=== PATIENT | female | born 1995 | race Caucasian/White ===

== ENCOUNTER 2016-11-16 22:17 | Emergency (ER) | payer OTHER ==
[2016-11-16 22:34] VITALS: TEMP 98; BMI 21.9
--- NOTE | 2016-11-16 22:52 | PDOC ---
History of Present Illness - General Chief Complaint: Laceration Stated Complaint: LFT FINGER LACERATION Time Seen by Provider: 11/16/16 22:37 - History of Present Illness Initial Comments: 11/16/16 22:53 21 year old female with laceration to left index finger proximal to PIP. currently minimal bleeding. able to move fingers. sensation intact. last tetanus 2013 Past History - Past Medical History Allergies/Adverse Reactions: Allergies Allergy/AdvReac Type Severity Reaction Status Date / Time No Known Allergies Allergy Verified 11/16/16 22:31 Home Medications: Ambulatory Orders NK [No Known Home Medication] 11/16/16 - Psycho/Social/Smoking Cessation Hx Anxiety: No Suicidal Ideation: No Smoking History: Never smoked Hx Alcohol Use: Yes Review of Systems - Review of Systems Able to Perform ROS?: Yes Is the patient limited [place] proficient: No Constitutional: No: Symptoms Reported, See HPI, Chills, Diaphoresis, Fever, Loss of Appetite, Malaise, Night Sweats, Weakness, Weight Stable, Unintentional Wgt. Loss, Unexplained wgt Loss, Other Integumentary: Yes: Other (lacerations) *Physical Exam - Vital Signs Last Vital Signs Temp Pulse Resp BP Pulse Ox 98 F 63 16 105/64 98 11/16/16 22:33 11/16/16 22:33 11/16/16 22:33 11/16/16 22:33 11/16/16 22:33 - Physical Exam General Appearance: Yes: Appropriately Dressed Extremity: positive: Normal Capillary Refill Integumentary: positive: Dry, Warm, Other (left index finger near the PIP joint. ) Neurologic: positive: Fully Oriented, Alert, Normal Mood/Affect Procedures - Laceration/Wound Repair Left Finger Wound Length: to 2.5 cm (1cm) Wound Explored: clean Wound's Depth, Shape: superficial Irrigated w/ Saline: Yes Wound Repaired With: Dermabond ED Treatment Course - RADIOLOGY Radiograph Interpretation: 11/16/16 23:51 finger xray: no foreign body Progress Note - Progress Note Progress Note: finger laceration p: xray r/o foreign body *DC/Admit/Observation/Transfer Diagnosis at time of Disposition: Finger laceration Qualifiers: Encounter type: initial encounter Qualified Code(s): S61.219A - Laceration without foreign body of unspecified finger without damage to nail, initial encounter - Discharge Dispostion Disposition: HOME - Patient Instructions Printed Discharge Instructions: DI for Laceration Repair With Dermabond Additional Instructions: keep wound clean an dry follow up with your doctor for a wound check as soon as possible if with redness , pus drainage, red streaking .
--- NOTE | 2016-11-16 23:34 | PDOC ---
*Physical Exam - Vital Signs Last Vital Signs Temp Pulse Resp BP Pulse Ox 98 F 63 16 105/64 98 11/16/16 22:33 11/16/16 22:33 11/16/16 22:33 11/16/16 22:33 11/16/16 22:33 - Physical Exam Comments: 11/16/16 23:34 The patient was examined by [NANCY Villegas] under my direct supervision. I personally evaluated the patient. I concur with the above findings and the plan of care. ED Treatment Course - ADDITIONAL ORDERS Additional order review: Laboratory Results 11/16/16 22:55 Urine HCG, Qual Negative *DC/Admit/Observation/Transfer Diagnosis at time of Disposition: Finger laceration Qualifiers: Encounter type: initial encounter Qualified Code(s): S61.219A - Laceration without foreign body of unspecified finger without damage to nail, initial encounter
[2016-11-17 01:16] VITALS: BP 110/68; PULSE 68
== END 2016-11-16 23:56 | disposition home or self-care (01) ==
LOC: JER 22:17
PROC: 0HQGXZZ Repair Left Hand Skin, External Approach (ICD-10-PCS; principal; 2016-11-16)
DX: S61.211A Laceration without foreign body of left index finger without damage to nail, initial encounter (principal); W25.XXXA Contact with sharp glass, initial encounter; Y93.89 Activity, other specified; Y92.89 Other specified places as the place of occurrence of the external cause; Y99.0 Civilian activity done for income or pay
CPT/HCPCS: 73140-TC-LT; 84703; 99282-25